=== PATIENT | female | born 1955 | race Caucasian/White ===

== ENCOUNTER → 2019-01-20 | Outpatient (CLI) | payer OTHER | LOC: RAD 09:48 | DX: M47.26 Other spondylosis with radiculopathy, lumbar region (principal); M43.16 Spondylolisthesis, lumbar region; R19.5 Other fecal abnormalities ==

== ENCOUNTER → 2019-02-09 | Outpatient (CLI) | payer OTHER | LOC: MRI 08:06 | DX: M51.16 Intervertebral disc disorders with radiculopathy, lumbar region (principal); M48.061 Spinal stenosis, lumbar region without neurogenic claudication ==

== ENCOUNTER 2019-04-20 19:23 | Inpatient (IN) | payer OTHER ==
[~2019-04-20] VITALS: Ht 162.6 cm; Wt 98.4 kg
[~2019-04-20 19:23] MED LIST: LEVAQUIN 750 M750 MG PO
[2019-04-20 19:30] VITALS: BP 214/95
[2019-04-20 20:03] LABS: URINE BILIRUBIN NEGATIVE (Negative); URINE BLOOD TRACE (Negative); URINE CLARITY CLEAR; URINE COLOR YELLOW; URINE GLUCOSE-RANDOM* 1+ (Negative); URINE KETONES NEGATIVE (Negative); URINE LEUKOCYTES-REFLEX NEGATIVE (Negative); URINE NITRITE-REFLEX NEGATIVE (Negative); URINE PROTEIN (DIPSTICK) 3+ (Negative); URINE UROBILINOGEN 0.2 E.U./dl (0.2-1.0)
[2019-04-20 20:05] LABS: ABSOLUTE NEUTROPHILS 11.4 thou/uL (1.4-8.2); BASOPHILS 1.4 % (0.0-2.0); EOSINOPHILS 0.5 % (0.0-3.0); HEMATOCRIT 35.8 % (37.0-47.0); HEMOGLOBIN 12.1 gm/dL (12.0-15.0); LYMPHOCYTES 18.6 % (24.0-44.0); MCH 30.2 pg (26.0-34.0); MCHC 33.9 g/dL (28.0-37.0); MONOCYTES 6.5 % (1.0-8.0); PLATELET COUNT 431 thou/uL (150-400); RBC 4.02 mil/uL (4.20-5.00); WBC 15.6 thou/uL (4.0-11.0)
[2019-04-20 20:15] LABS: BACTERIA-REFLEX 1-9 Few /HPF (None Seen); CASTS None Seen /LPF (None Seen); CRYSTALS None Seen /LPF (None Seen); SQUAMOUS 0-3 Few /LPF (0-3); URINE RBC 0-2 Rare /HPF (0-2)
[2019-04-20 20:16] LABS: URINE WBC-REFLEX 0-5 Rare /HPF (0-5)
[2019-04-20 20:18] LABS: ANION GAP 11 mmol/L (7-16); BUN 20 mg/dL (7-18); CALCIUM 9.4 mg/dL (8.5-10.1); CHLORIDE 93 mmol/L (98-107); CO2 24 mmol/L (21-32); GLUCOSE 208 mg/dL (74-106); POTASSIUM 3.9 mmol/L (3.5-5.1); SODIUM 128 mmol/L (136-145)
[2019-04-20 20:29] LABS: ALBUMIN 2.3 g/dL (3.4-5.0); LIPASE 43 U/L (73-393); SGOT 19 U/L (15-37); SGPT 26 U/L (30-65); TOTAL BILIRUBIN 0.1 mg/dL (<0.1-1.0); TOTAL PROTEIN 7.4 g/dL (6.4-8.2); TROPONIN-I <0.06 ng/mL (<0.06)
[2019-04-20] MEDS ORDERED: MAGOX 400400 MG PO (21:30)
[2019-04-20] MEDS ORDERED: ASPIR 8181 MG PO (21:30)
[2019-04-20] MEDS ORDERED: NEURONTIN 300300 M1 PO (21:31)
[2019-04-20] MEDS ORDERED: LISINOPRIL40 MG PO (21:32)
[2019-04-20] MEDS ORDERED: VERAPAMIL E.R240 M1 PO (21:33)
[2019-04-20] MEDS ORDERED: MELATONIN5 M1 PO (21:34)
[2019-04-20] MEDS ORDERED: TYLENOL WITH CO1 TA1 PO (21:34)
[2019-04-20] MEDS ORDERED: TRIAMTERENE-HC1 EAC3 PO (21:35)
[2019-04-20 22:04] VITALS: BP 156/78
[2019-04-20 22:16] VITALS: BP 156/60
[2019-04-20 22:55] VITALS: BP 135/58
[2019-04-20] MEDS ORDERED: HUMULIN N100 UNIT/1 SQ (23:55)
[2019-04-20] MEDS ORDERED: HUMULIN N100 UNIT/1 SUBQ (23:57)
[2019-04-21 03:56] VITALS: BP 106/66
--- NOTE | 2019-04-21 04:26 | NUR ---
ADMT" Pt admitted fro ER at about 2300. Will c/o flank pain. No pain on arrival. Pt had received morphine for ED. No nause or vomiting reported as well. Pt is alert and oriented. independent with ADLs. Low fall risk but encouraged to call in cases of weakness. BG on arrival to unit was 66. Given appple juice. BG raise to 98.
[2019-04-21 08:07] VITALS: BP 121/45
--- NOTE | 2019-04-21 09:19 | EKG ---
[address] [address] ELECTROCARDIOGRAM REPORT Name: JESE VILLARREALCASPER Room #: 218-P ADM IN M.R.#: [id number] ������������������ Admission: 04/20/19 ������������������ Attend Phys: Rey Slade Discharge: ������������������ Date of : 51 Report #: [id number] ����������������������������������������������������������������� [id number] THIS REPORT FOR: //name// [facility] ED Test Date: 2019-04-20 Test Time: 19:59:35 Pat Name: CASPER VILLARREAL Department: Room: 218 Gender: F [employer]er [employer]: : 1955 Requested By: Graham Todd Order Number: [id number] MD: Simon Duggan Measurements Intervals [place] Rate: 92 P: 38 [place]: 134 QRS: 19 QRSD: 94 T: 45 QT: 344 QTc: 426 Interpretive Statements Sinus rhythm RSR' in V1 or V2, probably normal variant No previous ECG available for comparison Electronically Signed On 04-21-2019 9:19:33 CDT by Simon Duggan [email or web address] ��������������������������������������������� <ELECTRONICALLY SIGNED> ���������������������������������������� By: Simon Duggan MD, [facility] ��������������������������������������������� 04/21/19918 58 58 Simon Duggan MD, [facility] /EPI
[2019-04-21 12:03] VITALS: BP 125/44
--- NOTE | 2019-04-21 17:14 | NUR ---
ASSESSMENT CHARTED - PT CHANGED TO M/S STAUS THIS AM. UP AD CAITLYN IN ROOM - SCARLET DIET AND FLUIDS. NO CO'S OF PAIN OR NAUSEA. CT SCAN COMPLETED THIS AM ORDERED. MEDS PER NOV. FLUIDS CONTINUE AT 125CC AN HOUR - URINE SPECIMEN SENT LAB. PT CALLED THIS AFTERNOON AND STATED THAT SHE FELT HER BLODD SUGAR WAS LOW - SWEATING - NOT FEELING WELL - CHECKED AND BS WAS 40- GIEN ICE CREAM/ MILE - RECHECK LOWER STILL METER STATED LESS THIEN 20 PT GIVEN 25 OF DEXTROSE IVP RECHECK AND SUGAR UP TO 43 THEN 57 ( PER PATIENT METER) LAB CALLED AND STAT GLUCOSE DONE AND IT WAS 209 AT THIS TIME. WILL MONIOT SUGAR AND DINNER TIME ADN AJUST INSULIN DOSE TO READING. PATIENT UP AD CAITLYN IN ROOM. STATED SHE FEELS MUCH BETTER AT THE PRESENT TIME. NO CO'S .
[2019-04-21 17:21] VITALS: BP 118/85
[2019-04-21 17:22] VITALS: BP 137/47
[2019-04-21 20:03] VITALS: BP 180/81
[2019-04-22 00:18] VITALS: BP 139/59
--- NOTE | 2019-04-22 01:51 | NUR ---
PT TRANSFERRED TO 4W. REPORT CALLED TO RN-RADHA AT AROUND 2330.
--- NOTE | 2019-04-22 03:42 | NUR ---
ASSUMED CARE OF PT AT AROUND 0000HRS. PT WAS Tx FROM 2N. PT IS AOX4 AND IS UP AD CAITLYN. PT HAS NO COMPLAINTS OF N/V OR PAIN. VITAL SIGN STABLE AND ASSESSMENT WAS NEGATIVE FOR ACUTE DISTRESS. WILL CONTINUE TO MONITOR.
[2019-04-22 04:43] VITALS: BP 157/62
[2019-04-22 07:41] LABS: ABSOLUTE NEUTROPHILS 6.2 thou/uL (1.4-8.2); BASOPHILS 0.7 % (0.0-2.0); EOSINOPHILS 1.7 % (0.0-3.0); HEMOGLOBIN 11.4 gm/dL (12.0-15.0); LYMPHOCYTES 27.2 % (24.0-44.0); MCH 29.6 pg (26.0-34.0); MCHC 32.7 g/dL (28.0-37.0); MCV 90.7 fL (80.0-100.0); MONOCYTES 8.4 % (1.0-8.0); PLATELET COUNT 386 thou/uL (150-400); RBC 3.86 mil/uL (4.20-5.00); RDW 13.6 % (10.5-14.5)
[2019-04-22 07:52] LABS: ALBUMIN 2.4 g/dL (3.4-5.0); CALCIUM 9.1 mg/dL (8.5-10.1); POTASSIUM 3.9 mmol/L (3.5-5.1); TOTAL BILIRUBIN 0.2 mg/dL (<0.1-1.0); TOTAL PROTEIN 6.9 g/dL (6.4-8.2)
[2019-04-22 08:00] VITALS: BP 156/83
[2019-04-22 15:00] VITALS: BP 179/69
--- NOTE | 2019-04-22 18:28 | NUR ---
ASSUMED CARE OF PATIENT AT 0715, PATIENT ALERT AND ORIENTED X 4. UP AD CAITLYN IN HER ROOM, NEEDS HELP WITH IV POLE. PATIENT DENIES PAIN, BUT C/O HEADACHE, HYDROCODONE 1 TABLET GIVEN, WITH COMPLETE RELIEF. PATIENT'S BLOOD SUGAR DROPPED THIS AFTERNOON TO 60, APPLE JUICE GIVEN, NOTIFIED DR HERNANDEZ, 3 GLUCOSE TABLETS GIVE, BLOOD UP TO 66, MORE JUICE, CRACKERS/PEANUT BUTTER GIVEN UP 10 168, REFUSED SCHEDULED INSULIN AND S/S INSULIN. PATIENT HAS RIGHT QRIST IV WITH NS AT 125CC/HR, RECEIVED 1 IV ANTIBIOTIC. DIET CHANGE FROM HEART HEALTHY TO CARB CONTROL. WILL CONTINUE TO MONITOR.
[2019-04-22 20:53] VITALS: BP 204/87
--- NOTE | 2019-04-23 02:55 | NUR ---
ASSUMED CARE OF PT AT 1900HRS. PT IS AOX4 AND UP AD CAITLYN. PT TOOK A SHOWER THIS SHIFT. PT REPORTED SOME PAIN AND WAS TREATED WITH PRN MEDS. PT WAS ABLE TO GET COMFORTABLE AND SLEEP PART OF THE SHIFT. NO OTHER S/S OF ACUTE DISTRESS. WILL CONTINUE TO MONITOR.
[2019-04-23 03:42] VITALS: BP 162/72
[2019-04-23] MEDS ORDERED: CEFUROXIME500 MG PO (10:29)
--- NOTE | 2019-04-23 11:46 | NUR ---
ASSUMED CARE OF PATIENT AT 0715, PATIENT ALERT AND ORIENTED X 4. PATIENT UP AD CAITLYN, NEED ASSIST WITH IV POLE. PATIENT C/O PAIN WITH RIGHT HIP SCIATIC PAIN 10/, HYDROCODONE 1 TABLET GIVEN. PATIENT HAS RIGHT WRIST IV IN PLACE WITH NS AT 125 CC/HR. BLOOD SUGAR MONITORING ORDERED, SCHEDULED INSULIN AND SLDING SCALE INSULIN, ALSO NPH [address] CALIX HERE THIS AM, PATIENT WILL DISCHARGE TO HOME TODAY. WILL CONTINUE TO MONITOR.
[2019-04-23 13:13] VITALS: BP 173/81
== END 2019-04-23 15:39 | disposition home or self-care (01) | DRG 871 ==
LOC: ER 19:23 → 2N 21:43 → EROBS 21:43 → 2N 22:34 → 4W 04-22 00:02
PROVIDERS: Emergency Medicine; ADMIT Hospitalist
DX: A41.9 Sepsis, unspecified organism (principal); E43 Unspecified severe protein-calorie malnutrition; N10 Acute pyelonephritis; E87.1 Hypo-osmolality and hyponatremia; I16.0 Hypertensive urgency; I10 Essential (primary) hypertension; E11.65 Type 2 diabetes mellitus with hyperglycemia; E88.09 Other disorders of plasma-protein metabolism, not elsewhere classified; M54.30 Sciatica, unspecified side; K59.00 Constipation, unspecified; N28.89 Other specified disorders of kidney and ureter; Z90.49 Acquired absence of other specified parts of digestive tract; Z90.710 Acquired absence of both cervix and uterus; Z87.891 Personal history of nicotine dependence; Z79.82 Long term (current) use of aspirin; Z79.899 Other long term (current) drug therapy; Z88.0 Allergy status to penicillin; Z82.49 Family history of ischemic heart disease and other diseases of the circulatory system; Z83.3 Family history of diabetes mellitus; Z68.37 Body mass index [BMI] 37.0-37.9, adult
CPT/HCPCS: 10045; 10081

== ENCOUNTER → 2019-04-27 | Outpatient (CLI) | payer OTHER ==
[~2019-04-27] MED LIST changes: +ASPIR 8181 MG PO; +CEFUROXIME500 MG PO; +HUMULIN N100 UNIT/1 SQ; +HUMULIN N100 UNIT/1 SUBQ; +LISINOPRIL40 MG PO; +MAGOX 400400 MG PO; +MELATONIN5 M1 PO; +NEURONTIN 300300 M1 PO; +TRIAMTERENE-HC1 EAC3 PO; +TYLENOL WITH CO1 TA1 PO; +VERAPAMIL E.R240 M1 PO
[2019-04-27 12:56] LABS: HEMATOCRIT 35.1 % (37.0-47.0); HEMOGLOBIN 11.7 gm/dL (12.0-15.0); MCH 29.9 pg (26.0-34.0); MCHC 33.3 g/dL (28.0-37.0); MCV 89.7 fL (80.0-100.0); RBC 3.92 mil/uL (4.20-5.00); RDW 13.7 % (10.5-14.5); WBC 14.9 thou/uL (4.0-11.0)
[2019-04-27 13:04] LABS: CALCIUM 8.9 mg/dL (8.5-10.1); MAGNESIUM 1.5 mg/dL (1.8-2.4); POTASSIUM 4.4 mmol/L (3.5-5.1)
== END ==
LOC: RAD 12:24
PROVIDERS: Neurological Surgery
DX: M43.16 Spondylolisthesis, lumbar region (principal); E86.0 Dehydration; R29.890 Loss of height

== ENCOUNTER 2019-06-10 12:33 | Emergency (ER) | payer OTHER ==
[~2019-06-10] VITALS: Ht 162.6 cm; Wt 106.6 kg
[2019-06-10] MEDS ORDERED: LASIX 40 MG TAB40 M2 PO (12:47)
[2019-06-10 12:50] LABS: URINE BILIRUBIN NEGATIVE (Negative); URINE BLOOD NEGATIVE (Negative); URINE CLARITY CLEAR; URINE COLOR YELLOW; URINE GLUCOSE-RANDOM* NEGATIVE (Negative); URINE KETONES NEGATIVE (Negative); URINE NITRITE-REFLEX NEGATIVE (Negative); URINE PROTEIN (DIPSTICK) TRACE (Negative); URINE SPECIFIC GRAVITY <= 1.005 (1.005-1.035); URINE UROBILINOGEN 0.2 E.U./dl (0.2-1.0)
[2019-06-10 12:52] LABS: URINE LEUKOCYTES-REFLEX 1+ (Negative)
[2019-06-10 13:00] LABS: BACTERIA-REFLEX None Seen /HPF (None Seen); CASTS None Seen /LPF (None Seen); CRYSTALS None Seen /LPF (None Seen); SQUAMOUS 0-3 Few /LPF (0-3); URINE RBC None Seen /HPF (0-2); WBC CLUMPS Moderate (None Seen)
[2019-06-10 13:26] LABS: ABSOLUTE NEUTROPHILS 8.9 thou/uL (1.4-8.2); BASOPHILS 0.2 % (0.0-2.0); EOSINOPHILS 1.6 % (0.0-3.0); HEMATOCRIT 37.2 % (37.0-47.0); HEMOGLOBIN 12.2 gm/dL (12.0-15.0); LYMPHOCYTES 28.2 % (24.0-44.0); MCH 29.2 pg (26.0-34.0); MCHC 32.7 g/dL (28.0-37.0); MCV 89.3 fL (80.0-100.0); MONOCYTES 6.5 % (1.0-8.0); PLATELET COUNT 392 thou/uL (150-400); POLYS 63.5 % (36.0-66.0); RBC 4.17 mil/uL (4.20-5.00); RDW 13.6 % (10.5-14.5)
[2019-06-10 13:33] LABS: CALCIUM 9.4 mg/dL (8.5-10.1); CREATININE 0.9 mg/dL (0.6-1.0); POTASSIUM 3.1 mmol/L (3.5-5.1)
[2019-06-10 13:39] LABS: ALBUMIN 3.3 g/dL (3.4-5.0); TOTAL BILIRUBIN 0.2 mg/dL (<0.1-1.0); TOTAL PROTEIN 7.8 g/dL (6.4-8.2)
[2019-06-10] MEDS ORDERED: CATAPRES0.2 MG PO (15:02)
[2019-06-10] MEDS ORDERED: MACROBID 100 M100 M1 PO (15:06)
[2019-06-10] MEDS ORDERED: KLOR-CON 1010 MEQ PO (15:06)
[2019-06-10 15:33] VITALS: BP 192/84
--- NOTE | 2019-06-11 14:20 | EKG ---
[address] [address] ELECTROCARDIOGRAM REPORT Name: CASPER SPANGLER [id number] ������������������ Admission: 06/10/19 ������������������ Attend Phys: Discharge: 06/10/19 ������������������ Date of : 51 Report #: [id number] ����������������������������������������������������������������� [id number] THIS REPORT FOR: //name// [facility] ED Test Date: 2019-06-10 Test Time: 12:48:29 Pat Name: CASPER VILLARREAL Department: Room: Gender: F Health It Specialist: NELY : 1955 Requested By: Tahira Mora Order Number: [id number] MD: Simon Duggan Measurements Intervals [place] Rate: 87 P: 54 WY: 135 QRS: 16 QRSD: 102 T: 41 QT: 382 QTc: 460 Interpretive Statements Sinus rhythm Ventricular premature complex RSR' in V1 or V2, probably normal variant Baseline wander in lead(s) V5,V6 Compared to ECG 04/20/2019 19:59:35 Ventricular premature complex(es) now present Electronically Signed On 06-11-2019 14:20:14 CDT by Simon Duggan [email or web address] ��������������������������������������������� <ELECTRONICALLY SIGNED> ���������������������������������������� By: Simon Duggan MD, [facility] ��������������������������������������������� 06/11/19 1420 1248 1248 Simon Duggan MD, [facility] /EPI
== END 2019-06-10 15:07 | disposition home or self-care (01) ==
LOC: ER 12:33
PROVIDERS: Physician Assistant
DX: I10 Essential (primary) hypertension (principal); R51 Headache; E11.9 Type 2 diabetes mellitus without complications; Z90.49 Acquired absence of other specified parts of digestive tract; Z90.710 Acquired absence of both cervix and uterus; Z88.0 Allergy status to penicillin

== ENCOUNTER → 2019-06-12 | Outpatient (CLI) | payer OTHER ==
[~2019-06-12] MED LIST changes: +CATAPRES0.2 MG PO; +KLOR-CON 1010 MEQ PO; +LASIX 40 MG TAB40 M2 PO; +MACROBID 100 M100 M1 PO
== END ==
LOC: CAT 13:13
DX: Z13.6 Encounter for screening for cardiovascular disorders (principal); E78.00 Pure hypercholesterolemia, unspecified; I25.10 Atherosclerotic heart disease of native coronary artery without angina pectoris

== ENCOUNTER → 2019-11-17 | Outpatient (CLI) | payer OTHER | LOC: SJCVCIMAG 08:22 | DX: I10 Essential (primary) hypertension (principal); E11.9 Type 2 diabetes mellitus without complications; E78.00 Pure hypercholesterolemia, unspecified; Z79.4 Long term (current) use of insulin; Z79.82 Long term (current) use of aspirin ==

== ENCOUNTER → 2021-05-13 | Outpatient (CLI) | payer OTHER | LOC: SJCVC 14:09 | PROVIDERS: ATTEND Internal Medicine Cardiovascular Disease | DX: I25.10 Atherosclerotic heart disease of native coronary artery without angina pectoris (principal); I10 Essential (primary) hypertension; E78.00 Pure hypercholesterolemia, unspecified; E11.9 Type 2 diabetes mellitus without complications; R60.9 Edema, unspecified; E78.1 Pure hyperglyceridemia; K21.9 Gastro-esophageal reflux disease without esophagitis; Z90.49 Acquired absence of other specified parts of digestive tract; Z90.710 Acquired absence of both cervix and uterus; Z88.8 Allergy status to other drugs, medicaments and biological substances; Z79.82 Long term (current) use of aspirin; Z79.4 Long term (current) use of insulin; Z79.899 Other long term (current) drug therapy; Z87.891 Personal history of nicotine dependence; Z82.49 Family history of ischemic heart disease and other diseases of the circulatory system ==

== ENCOUNTER 2021-06-05 18:47 | Emergency (ER) | payer OTHER ==
[~2021-06-05] VITALS: Ht 162.6 cm; Wt 97.5 kg
[2021-06-05] MEDS ORDERED: SPIRONOLACTONE25 MG PO (19:00)
[2021-06-05] MEDS ORDERED: DEMADEX20 MG PO (19:00)
[2021-06-05] MEDS ORDERED: TRAMADOL 50 MG50 MG PO (19:00)
[2021-06-05] MEDS ORDERED: METOPROLOL SUCC50 MG PO (19:00)
[2021-06-05] MEDS ORDERED: NEURONTIN 300M300 M2 PO (19:01)
[2021-06-05] MEDS ORDERED: OMEPRAZOLE40 MG PO (19:01)
[2021-06-05] MEDS ORDERED: NOVOLOG100 UNIT/1 SUBQ (19:01)
[2021-06-05] MEDS ORDERED: LEVEMIR100 UNIT/1 SUBQ (19:02)
[2021-06-05] MEDS ORDERED: FENOFIBRATE145 M1 PO (19:03)
[2021-06-05] MEDS ORDERED: EZETIMIBE10 MG PO (19:03)
[2021-06-05 21:10] VITALS: BP 149/56
== END 2021-06-05 21:19 | disposition home or self-care (01) ==
LOC: ER 18:47
PROVIDERS: Emergency Medicine
DX: Z20.822 Contact with and (suspected) exposure to COVID-19 (principal); E11.9 Type 2 diabetes mellitus without complications; I10 Essential (primary) hypertension; Z90.49 Acquired absence of other specified parts of digestive tract; Z90.710 Acquired absence of both cervix and uterus; Z79.82 Long term (current) use of aspirin; Z79.4 Long term (current) use of insulin; Z79.899 Other long term (current) drug therapy; Z88.0 Allergy status to penicillin

== ENCOUNTER 2021-06-16 11:43 | Inpatient (IN) | payer OTHER ==
[~2021-06-16] VITALS: Ht 162.6 cm; Wt 91.6 kg
[~2021-06-16 11:43] MED LIST changes: +DEMADEX20 MG PO; +EZETIMIBE10 MG PO; +FENOFIBRATE145 M1 PO; +LEVEMIR100 UNIT/1 SUBQ; +METOPROLOL SUCC50 MG PO; +NEURONTIN 300M300 M2 PO; +NOVOLOG100 UNIT/1 SUBQ; +OMEPRAZOLE40 MG PO; +SPIRONOLACTONE25 MG PO; +TRAMADOL 50 MG50 MG PO
[2021-06-16 11:46] VITALS: BP 157/88
[2021-06-16 12:24] LABS: ABSOLUTE NEUTROPHILS 11.8 thou/uL (1.4-8.2); BASOPHILS 0.4 % (0.0-2.0); EOSINOPHILS 0.1 % (0.0-3.0); HEMATOCRIT 39.5 % (37.0-47.0); HEMOGLOBIN 12.9 gm/dL (12.0-15.0); MCH 28.5 pg (26.0-34.0); MCHC 32.7 g/dL (28.0-37.0); MCV 87.3 fL (80.0-100.0); MONOCYTES 4.2 % (1.0-8.0); PLATELET COUNT 394 thou/uL (150-400); POLYS 88.3 % (36.0-66.0); RBC 4.53 mil/uL (4.20-5.00); RDW 13.2 % (10.5-14.5); WBC 13.4 thou/uL (4.0-11.0)
[2021-06-16 12:34] LABS: CALCIUM 9.5 mg/dL (8.5-10.1); CREATININE 1.6 mg/dL (0.6-1.0); POTASSIUM 4.3 mmol/L (3.5-5.1)
[2021-06-16 12:41] LABS: ALBUMIN 2.6 g/dL (3.4-5.0); TOTAL BILIRUBIN 0.3 mg/dL (0.2-1.0); TOTAL PROTEIN 8.1 g/dL (6.4-8.2)
[2021-06-16 13:50] VITALS: BP 143/40
[2021-06-16 14:16] LABS: URINE BILIRUBIN NEGATIVE (Negative); URINE BLOOD NEGATIVE (Negative); URINE CLARITY CLEAR; URINE COLOR YELLOW; URINE GLUCOSE-RANDOM* 3+ (Negative); URINE KETONES TRACE (Negative); URINE LEUKOCYTES-REFLEX NEGATIVE (Negative); URINE NITRITE-REFLEX NEGATIVE (Negative); URINE PROTEIN (DIPSTICK) TRACE (Negative); URINE UROBILINOGEN 0.2 E.U./dl (0.2-1.0)
[2021-06-16 14:18] VITALS: BP 164/49
[2021-06-16 14:37] VITALS: BP 155/89
--- NOTE | 2021-06-16 16:27 | EKG ---
[address] [address] ELECTROCARDIOGRAM REPORT Name: CASPER SPANGLER Kamran Room #: 350-[facility] IN ..#: [id number] Admission: 06/16/21 Attend Phys: Nadir Ortega MD Discharge: Date of : 51 Report #: [id number] [facility] ED Test Date: 2021-06-16 Test Time: 11:57:27 Pat Name: CASPER VILLARREAL Department: Room: [facility] Gender: F Manager [employer]: GENESIS : 1955 Requested By: Nadir Ortega Order Number: [id number] : Chito Ha Measurements Intervals [place] Rate: 90 P: 72 WI: 116 QRS: 17 QRSD: 104 T: 53 QT: 364 QTc: 446 Interpretive Statements Sinus rhythm Ventricular premature complex Borderline short WI interval Low voltage, precordial leads Compared to ECG 06/10/2019 12:48:29 Low QRS voltage now present ST (T wave) deviation now present Electronically Signed On 06-16-2021 16:27:03 CDT by Chito Ha [email or web address] <ELECTRONICALLY SIGNED> By: Chito Ha MD, [facility] 06/16/21 1627 1157 1157 Chito Ha MD, [facility] /EPI
[2021-06-16 16:56] LABS: FOLIC ACID 25.7 ng/mL (8.6-58.9)
--- NOTE | 2021-06-16 19:18 | NUR ---
PT ADMITTED FROM ER FOR SOB AND POSITIVE COVID, PT IS A&OX4, PT IS ON O2 4L/MIN/NC WHEN PT COME FROM ER, PT'S O2SAT STAYS AT 94-95%, PT'S VS AND O2SAT ARE STABLE, BUT PT HAS SOB WITH ACTIVIES, PT HAS STARTED IV ABX AND TREAT COVID MEDICATIONS,
[2021-06-16 19:31] VITALS: BP 189/84
--- NOTE | 2021-06-16 19:34 | NUR ---
RN HAS CALLED HOSPITAL DR TO REPORT PT'S HIGH BS 545 , NEW ORDER REVEIVED, RN HAS REPORTED TO NEXT SHIFT TO KEEP EYE ON PT.
[2021-06-16 22:30] VITALS: BP 154/84
--- NOTE | 2021-06-16 22:31 | NUR ---
PT RESTING IN BED, RESTLESS REPORTING NEUROPATHY FOOT LEG PAIN, HS AND PRN MEDS PROVIDED. PT REPOSITIONED IN BED. O2 PER NC 4L. PTS LUNGS WHEEZES, CAITLYN COMPLEXION. PT PROVIDED HS SNACK ALONG WITH HS AND SCALE INSULIN. PT REQUESTING PRN FOR SLEEP AND PROVIDER NOTIFIED. PT INDEP TO BSC USES CANE, CALLS FOR ASSISTANCE WHEN NEEDED. IVF INTACT.
--- NOTE | 2021-06-17 02:27 | NUR ---
ASSUMED PT CARE AT 0215.
--- NOTE | 2021-06-17 04:30 | NUR ---
PT IS ORIENTED X4. PRN TYLENOL GIVEN FOR C/O GENERALIZED BODY ACHES. SPO2 STABLE ON 4L NC. UP TO BSC FOR TOILETING NEEDS. IVF INFUSING ORDERED. PROGRESSING SLOWLY TOWARD POC GOALS. WILL MONITOR FURTHER.
[2021-06-17 05:16] VITALS: BP 168/80
[2021-06-17 05:27] LABS: ABSOLUTE NEUTROPHILS 4.5 thou/uL (1.4-8.2); BASOPHILS 0.3 % (0.0-2.0); HEMATOCRIT 36.4 % (37.0-47.0); HEMOGLOBIN 12.2 gm/dL (12.0-15.0); LYMPHOCYTES 15.3 % (24.0-44.0); MCH 29.6 pg (26.0-34.0); MCHC 33.6 g/dL (28.0-37.0); MCV 88.3 fL (80.0-100.0); MONOCYTES 4.6 % (1.0-8.0); PLATELET COUNT 383 thou/uL (150-400); POLYS 79.8 % (36.0-66.0); RBC 4.13 mil/uL (4.20-5.00); RDW 13.3 % (10.5-14.5); WBC 5.6 thou/uL (4.0-11.0)
[2021-06-17 06:21] LABS: INR 1.01
[2021-06-17 06:34] LABS: ALBUMIN 2.4 g/dL (3.4-5.0); CALCIUM 9.6 mg/dL (8.5-10.1); DIRECT BILIRUBIN 0.1 mg/dL (<0.1-0.2); PHOSPHORUS 2.3 mg/dL (2.5-4.9); POTASSIUM 4.4 mmol/L (3.5-5.1); TOTAL BILIRUBIN 0.3 mg/dL (0.2-1.0); TOTAL PROTEIN 7.6 g/dL (6.4-8.2)
[2021-06-17 07:21] VITALS: BP 187/86
[2021-06-17 11:12] VITALS: BP 138/66
[2021-06-17 15:16] VITALS: BP 140/58
--- NOTE | 2021-06-17 15:26 | NUR ---
INITIAL ASSESSMENT: EDY reviewed chart and spoke with nursing and attending physician. Pt was admitted from home due to COVID. Pt placed in Enhanced Isolation. Pt has received the [employer] COVID vaccination. Pt is afebrile and on 3-4L of O2. Pt is on IV abx, IV steroids and Remdesivir. EDY spoke with pt via phone. Introduced role of SW. Pt is alert/orientated x 4. Pt states she lives at home with her , who is also COVID positive. Prior to admission, pt was independent with ADLs. Pt does have a cane and walker to use if needed. Pt state there are 3 steps that she has to navigate. No hx of HH or post-acute placement. Pt's PCP is Dr. Almodovar. Therapy evals to be ordered if needed. Pt will need a rest/exercise oximetry prior to discharge to determine if pt needs home O2. SW is following to assist as needed with discharge planning.
[2021-06-17 19:18] VITALS: BP 153/69
--- NOTE | 2021-06-17 20:56 | NUR ---
PT RESTING IN BED, WATCHING TV. O2 PER NC. LUNGS DIMINISHED. CAITLYN FACE. INDEP WITH ADLS USES CANE. REQUESTED PRN FOR NEUROPATHY PAIN, SLEEP AND PROVIDED. HS SNACK PROVIDED. BSC AT BEDSIDE.
[2021-06-18 03:44] VITALS: BP 165/83
[2021-06-18 06:02] LABS: ALBUMIN 2.2 g/dL (3.4-5.0); ANION GAP 14 mmol/L (7-16); BUN 40 mg/dL (7-18); CALCIUM 9.4 mg/dL (8.5-10.1); CHLORIDE 104 mmol/L (98-107); CO2 24 mmol/L (21-32); DIRECT BILIRUBIN < 0.1 mg/dL (<0.1-0.2); GLUCOSE 220 mg/dL (74-106); PHOSPHORUS 2.9 mg/dL (2.6-4.7); POTASSIUM 3.8 mmol/L (3.5-5.1); SGOT 27 U/L (15-37); SGPT 21 U/L (14-59); TOTAL BILIRUBIN 0.6 mg/dL (0.2-1.0); TOTAL PROTEIN 6.9 g/dL (6.4-8.2)
[2021-06-18 06:16] LABS: SODIUM 142 mmol/L (136-145)
[2021-06-18 07:27] VITALS: BP 186/64
[2021-06-18 10:08] LABS: HIV ANTIBODY Non Reactive (Non Reactive)
[2021-06-18 11:16] VITALS: BP 143/82
[2021-06-18 16:06] VITALS: BP 159/81
--- NOTE | 2021-06-18 18:16 | NUR ---
RN ASSUMED PT'S CARE AT 0700AM, PT IS A&OX4, PT IS CONTINUING IV ABX AND TREAT COVID MEDICATIONS, PT 'S O2 IS OFF AND SHE IS ON ROOM AIR, PT'S VS AND O2SAT ARE STABLE AT DAY SHIFT, PT CAN GET UP TO BSC COMMANDS WITHOUT ASSIST, PT DENIES PAIN AND SOB BY THIS TIME.
[2021-06-18 19:15] VITALS: BP 137/75
--- NOTE | 2021-06-19 02:40 | NUR ---
PROGRESS PT A/OX4 UP AD CAITLYN. ON ROOM AIR TELEMETRY INTACT READING SR/SB. VSS AFEBRILE. CONTINUES REMDESIVIR . ACCUCHECKS AND SSI CONTINUE. C/O ITCHING BENEDRYL AND SKIN LOTION GIVEN WITH EFFECT DR. CARDENAS AWARE AND DC'D AZITHROMYCIN. USING ISP INDEPENDENTLY. POSSIBLE DC IN THE NEXT FEW DAYS AFTER REMDESIVIR COMPLETED.
[2021-06-19 03:16] VITALS: BP 163/56
[2021-06-19 05:05] LABS: ABSOLUTE NEUTROPHILS 11.2 thou/uL (1.4-8.2); BASOPHILS 0.2 % (0.0-2.0); HEMATOCRIT 35.8 % (37.0-47.0); HEMOGLOBIN 11.7 gm/dL (12.0-15.0); LYMPHOCYTES 6.5 % (24.0-44.0); MCHC 32.7 g/dL (28.0-37.0); MCV 88.6 fL (80.0-100.0); MONOCYTES 2.4 % (1.0-8.0); PLATELET COUNT 403 thou/uL (150-400); POLYS 90.9 % (36.0-66.0); RBC 4.04 mil/uL (4.20-5.00); RDW 13.5 % (10.5-14.5); WBC 12.3 thou/uL (4.0-11.0)
[2021-06-19 05:46] LABS: ALBUMIN 2.2 g/dL (3.4-5.0); CALCIUM 8.9 mg/dL (8.5-10.1); CREATININE 1.1 mg/dL (0.6-1.0); DIRECT BILIRUBIN 0.1 mg/dL (<0.1-0.2); PHOSPHORUS 3.5 mg/dL (2.5-4.9); POTASSIUM 3.9 mmol/L (3.5-5.1); TOTAL BILIRUBIN 0.2 mg/dL (0.2-1.0); TOTAL PROTEIN 6.3 g/dL (6.4-8.2)
[2021-06-19 07:37] VITALS: BP 168/56
[2021-06-19 11:24] VITALS: BP 177/71
--- NOTE | 2021-06-19 13:26 | NUR ---
SW reviewed chart and spoke with nursing and attending physician. Pt remains in Enhanced Isolation due to COVID. Pt is afebrile and not requiring O2. Pt is on IV steroids and Remdesivir. Discharge home was planned for today. Pt's BG was 483 prior to lunch today. Discharge cancelled and will anticipate pt will discharge home tomorrow. EDY is following to assist as needed with discharge planning.
[2021-06-19 15:23] VITALS: BP 150/64
--- NOTE | 2021-06-19 19:00 | NUR ---
RN ASSUMED PT'S CARE AT 0700-1900PM, PT IS A&OX4, PT WAS OFF O2 AT YESTODAY, PT'S VS AND O2SAT ARE STABLE, PT DENIES SON WITH ACTIVITIES, PT IS CONTINUING COVID MEDICATIONS AND BS AND PAIN MANAGEMENT. PT GETS UP TO BATH ROOM WITHOUT ASSIST.
[2021-06-19 20:23] VITALS: BP 116/61
[2021-06-20 04:20] VITALS: BP 130/57
[2021-06-20 05:31] LABS: ALBUMIN 2.2 g/dL (3.4-5.0); ANION GAP 13 mmol/L (7-16); BUN 50 mg/dL (7-18); CHLORIDE 100 mmol/L (98-107); CO2 25 mmol/L (21-32); CREATININE 1.4 mg/dL (0.6-1.0); DIRECT BILIRUBIN < 0.1 mg/dL (<0.1-0.2); GLUCOSE 166 mg/dL (74-106); PHOSPHORUS 3.6 mg/dL (2.5-4.9); POTASSIUM 3.5 mmol/L (3.5-5.1); SGOT 29 U/L (15-37); SGPT 24 U/L (30-65); SODIUM 138 mmol/L (136-145); TOTAL BILIRUBIN 0.2 mg/dL (0.2-1.0); TOTAL PROTEIN 6.2 g/dL (6.4-8.2)
--- NOTE | 2021-06-20 05:41 | NUR ---
PT MAKING SLOW PROGRESS TOWARDS GOALS. ON ROOM AIR THROUGHOUT THE NIGHT. THIS AM O2 SAT UPON AWAKENING WAS 88%. DID START O2 AT 2L PER NC AND ENCOURAGED PT TO USE WHILE ASLEEP. WILL INFORM DAY RN.
[2021-06-20 07:08] VITALS: BP 136/60
[2021-06-20] MEDS ORDERED: VITAMIN C1000 MG PO (11:26)
[2021-06-20] MEDS ORDERED: VITAMIN D325 MC2 PO (11:26)
[2021-06-20] MEDS ORDERED: PREDNISONE 20 M20 M1 PO (11:27)
[2021-06-20 11:50] VITALS: BP 136/60
--- NOTE | 2021-06-20 12:34 | NUR ---
DISCHARGE NOTE: SW reviewed chart and spoke with nursing and attending physician. Pt remains in Enhanced Isolation due to COVID. Pt is medically stable for discharge home today. Rest/exercise oximetry completed. Pt does not need home O2. SW spoke with pt via phone to discuss discharge plan. Pt is aware and in agreement with plan. Pt's family to provide transportation home. No SW needs identified at this time, but is available to assist should needs arise.
== END 2021-06-20 12:45 | disposition home or self-care (01) | DRG 177 ==
LOC: ER 11:43 → EROBS 13:40 → 3W 13:40
PROVIDERS: Nurse Practitioner; Specialist; ADMIT Hospitalist; ATTEND Hospitalist
PROC: XW033E5 Introduction of Remdesivir Anti-infective into Peripheral Vein, Percutaneous Approach, New Technology Group 5 (ICD-10-PCS; principal; 2021-06-16)
DX: U07.1 COVID-19 (principal); J12.82 Pneumonia due to coronavirus disease 2019; J96.01 Acute respiratory failure with hypoxia; N17.9 Acute kidney failure, unspecified; E87.1 Hypo-osmolality and hyponatremia; E78.5 Hyperlipidemia, unspecified; E86.0 Dehydration; E11.9 Type 2 diabetes mellitus without complications; I10 Essential (primary) hypertension; Z90.49 Acquired absence of other specified parts of digestive tract; Z90.710 Acquired absence of both cervix and uterus; Z88.0 Allergy status to penicillin; Z87.891 Personal history of nicotine dependence; Z79.899 Other long term (current) drug therapy; Z79.82 Long term (current) use of aspirin; Z88.1 Allergy status to other antibiotic agents
CPT/HCPCS: 10879

== ENCOUNTER → 2021-09-12 | Outpatient (CLI) | payer OTHER ==
[~2021-09-12] MED LIST changes: +PREDNISONE 20 M20 M1 PO; +VITAMIN C1000 MG PO; +VITAMIN D325 MC2 PO
== END ==
LOC: SJCVCIMAG 06:53
PROVIDERS: ATTEND Internal Medicine Cardiovascular Disease
DX: I08.1 Rheumatic disorders of both mitral and tricuspid valves (principal); R93.1 Abnormal findings on diagnostic imaging of heart and coronary circulation; E11.42 Type 2 diabetes mellitus with diabetic polyneuropathy; I10 Essential (primary) hypertension; E78.00 Pure hypercholesterolemia, unspecified; K21.9 Gastro-esophageal reflux disease without esophagitis; Z79.4 Long term (current) use of insulin; Z87.891 Personal history of nicotine dependence; Z88.0 Allergy status to penicillin; Z88.5 Allergy status to narcotic agent; Z79.82 Long term (current) use of aspirin; Z79.899 Other long term (current) drug therapy